=== PATIENT | female | born 1980 | race Caucasian/White ===

== ENCOUNTER 2020-09-14 11:16 | Outpatient (REF) | payer OTHER, SELFPAY | END 2020-09-14 11:17 | disposition home or self-care (01) | LOC: HO.LAB 11:16 | PROVIDERS: Visit Provider Nurse Practitioner Family | DX: N39.0 Urinary tract infection, site not specified (principal) | CPT/HCPCS: 87086; 87186 ==

== ENCOUNTER 2020-11-28 10:07 | Outpatient (REF) | payer OTHER, SELFPAY ==
[2020-11-28 11:51] LABS: Alanine Aminotransferase 79 U/L (0-31); Aspartate Amino Transferase 43 U/L (5-31); Gamma Glutamyl Transpeptidase 85 U/L (7-33)
== END 2020-11-28 10:08 | disposition home or self-care (01) ==
LOC: HO.HMGCLDS 10:07
PROVIDERS: PCP Internal Medicine; Visit Provider Nurse Practitioner
DX: F11.20 Opioid dependence, uncomplicated (principal)
CPT/HCPCS: 36415; 82977; 84450; 84460

== ENCOUNTER 2021-01-30 15:04 | Outpatient (REF) | payer OTHER, SELFPAY ==
[2021-01-31 09:09] LABS: BV Int Neg Control Negative (Negative); BV Int Pos Control Positive (Positive)
[2021-01-31 09:47] LABS: C. trachomatis RNA TMA NOT DETECTED (NOT DETECTED); N. gonorrhoeae RNA TMA NOT DETECTED (NOT DETECTED)
[2021-02-01 19:12] LABS: HPV mRNA E6/E7 rflx Not Detected (Not Detected)
== END 2021-01-30 15:05 | disposition home or self-care (01) ==
LOC: HO.LAB 15:04
PROVIDERS: Visit Provider Advanced Practice Midwife
DX: Z01.419 Encounter for gynecological examination (general) (routine) without abnormal findings (principal); R10.2 Pelvic and perineal pain; Z88.8 Allergy status to other drugs, medicaments and biological substances; Z20.2 Contact with and (suspected) exposure to infections with a predominantly sexual mode of transmission
CPT/HCPCS: 36415; 87480; 87491; 87510; 87591; 87624; 87660; 88142

== ENCOUNTER 2021-02-03 09:36 | Outpatient (REF) | payer OTHER, SELFPAY ==
[2021-02-05 08:09] LABS: Syphilis Screen Nonreactive (Nonreactive)
[2021-02-07 08:04] LABS: HIV AB/AG Nonreactive (Nonreactive); Hepatitis B Core Antibody Nonreactive (Nonreactive)
[2021-02-07 08:24] LABS: ~HepC Num1 0.16 S/CO (0.00-0.79); ~Hepatitis C Antibody Nonreactive (Nonreactive)
== END 2021-02-03 09:37 | disposition home or self-care (01) ==
LOC: HO.LAB 09:36
PROVIDERS: PCP Internal Medicine; Visit Provider Advanced Practice Midwife
DX: Z20.2 Contact with and (suspected) exposure to infections with a predominantly sexual mode of transmission (principal)
CPT/HCPCS: 36415; 86704; 86780; 86803; 87389

== ENCOUNTER 2021-02-21 15:12 | Outpatient (REF) | payer OTHER, SELFPAY ==
--- NOTE | ~2021-02-21 | US_ITS ---
EXAMINATION: US PELVIS COMPLETE CLINICAL INFORMATION: Pelvic and perineal pain. COMPARISON: Ultrasound 07/17/2020. TECHNIQUE: Transabdominal and transvaginal ultrasound of the pelvis is performed. FINDINGS: The uterus is anteverted and anteflexed measuring 10.5 cm in length, 3.9 cm in AP and 5.2 cm in transverse dimension. Endometrial thickness is 1.0 cm. There are small nabothian cysts visualized. Previously visualized myometrial cysts are not visualized on the present exam. Right ovary measures 2.7 x 2.3 x 1.4 cm and volume 4.6 mL. No cyst or lesions seen. Previously right ovary measures 2.6 x 2.7 x 2.1 cm. The left ovary measures 3.9 x 1.9 x 1.9 cm and volume 7.4 mL. There is a complex cyst measuring 2.0 x 1.6 x 1.4 cm. There is no free fluid in the cul-de-sac. US/US transvaginal IMPRESSION: Small nabothian cysts seen in the cervix. No myometrial cysts seen. Complex cyst seen in left ovary measuring 2.0 x 1.6 x 1.4 cm.
--- NOTE | ~2021-02-21 | US_ITS ---
EXAMINATION: US PELVIS COMPLETE CLINICAL INFORMATION: Pelvic and perineal pain. COMPARISON: Ultrasound 07/17/2020. TECHNIQUE: Transabdominal and transvaginal ultrasound of the pelvis is performed. FINDINGS: The uterus is anteverted and anteflexed measuring 10.5 cm in length, 3.9 cm in AP and 5.2 cm in transverse dimension. Endometrial thickness is 1.0 cm. There are small nabothian cysts visualized. Previously visualized myometrial cysts are not visualized on the present exam. Right ovary measures 2.7 x 2.3 x 1.4 cm and volume 4.6 mL. No cyst or lesions seen. Previously right ovary measures 2.6 x 2.7 x 2.1 cm. The left ovary measures 3.9 x 1.9 x 1.9 cm and volume 7.4 mL. There is a complex cyst measuring 2.0 x 1.6 x 1.4 cm. There is no free fluid in the cul-de-sac. US/US pelvic complete IMPRESSION: Small nabothian cysts seen in the cervix. No myometrial cysts seen. Complex cyst seen in left ovary measuring 2.0 x 1.6 x 1.4 cm.
== END 2021-02-21 15:13 | disposition home or self-care (01) ==
LOC: HO.US 15:12
PROVIDERS: PCP Internal Medicine; Visit Provider Advanced Practice Midwife
DX: R10.2 Pelvic and perineal pain (principal)
CPT/HCPCS: 76830; 76856

== ENCOUNTER → 2021-02-26 15:37 | Outpatient (BNVA) | payer OTHER, SELFPAY | PROVIDERS: Visit Provider Advanced Practice Midwife ==

== ENCOUNTER → 2021-04-12 08:27 | Outpatient (BNVA) | payer OTHER, SELFPAY | PROVIDERS: PCP Internal Medicine; Visit Provider Advanced Practice Midwife | DX: R10.2 Pelvic and perineal pain (principal) | CPT/HCPCS: 99212 ==

== ENCOUNTER 2021-04-16 13:50 | Outpatient (REF) | payer OTHER, SELFPAY ==
--- NOTE | ~2021-04-16 | US_ITS ---
EXAMINATION: PELVIC ULTRASOUND CLINICAL INFORMATION: Pelvic and perineal pain COMPARISON: Previous pelvic ultrasound most recent 02/21/2021 TECHNIQUE: Transabdominal and transvaginal pelvic ultrasound was performed. Transvaginal exam was performed for better visualization of the uterus and ovaries. FINDINGS: The uterus is anteverted and measures 10.1 x 4.1 x 4.9 cm in dimension. No focal uterine lesion is seen. Endometrial thickness is normal measuring 0.9 cm. There are nabothian cysts in the cervix, largest measuring 1.9 x 1.2 x 2 cm. The right ovary is normal-appearing and measures 3 x 1.4 x 2 cm. The left ovary measures 3.6 x 2 x 2.3 cm and contains a minimally complex cyst with single thin septation measuring 1.6 x 1.4 x 1.5 cm. This may represent the same cyst seen in January 2021 and be decreased in size compared to 2 x 1.6 x 1.4 cm on prior exam. There is no fluid in the pelvis. US/US pelvic and transvaginal IMPRESSION: Small minimally complex left ovarian cyst measuring 1.6 x 1.4 x 1.5 cm with single thin septation. Nabothian cysts in the cervix, largest measuring 2 cm.
== END 2021-04-16 13:51 | disposition home or self-care (01) ==
LOC: HO.HMGCX 13:50
PROVIDERS: Visit Provider Advanced Practice Midwife
DX: N83.292 Other ovarian cyst, left side (principal); N88.8 Other specified noninflammatory disorders of cervix uteri; R63.4 Abnormal weight loss; R10.2 Pelvic and perineal pain; R19.03 Right lower quadrant abdominal swelling, mass and lump
CPT/HCPCS: 76830; 76856

== ENCOUNTER 2021-04-19 10:01 | Outpatient (REF) | payer OTHER, SELFPAY ==
--- NOTE | ~2021-04-19 | US_ITS ---
EXAMINATION: US ABDOMEN COMPLETE CLINICAL INFORMATION: Elevated liver function tests. COMPARISON: Ultrasound abdomen complete dated 04/12/2020. TECHNIQUE: Real-time imaging of the abdominal viscera. FINDINGS: PANCREAS: Normal. ABDOMINAL AORTA: The proximal, mid, and distal segments are normal in caliber. INFERIOR VENA CAVA: Visualized portions are normal. LIVER: Normal. The liver is normal in size. The liver contour is normal. Parenchymal echogenicity is normal. No focal hepatic lesion. There is no intrahepatic biliary duct dilatation seen. GALLBLADDER: There are multiple small echogenic densities adjacent to the gallbladder wall that do not move or shadow suggestive of small polyps. The largest measures 2 mm. No definite stone is seen. The gallbladder wall is otherwise normal. COMMON BILE DUCT: Normal in caliber measuring 0.55 cm in diameter. RIGHT KIDNEY: Normal. No hydronephrosis. No renal calculi or focal parenchymal lesions. The kidney measures 11.9 cm in maximum dimension. LEFT KIDNEY: Normal. No hydronephrosis. No renal calculi or focal parenchymal lesions. The kidney measures 12.0 cm in maximum dimension. SPLEEN: Normal. The spleen measures 11.4 cm in maximum dimension. FREE FLUID: None. US/US abdomen complete IMPRESSION: Small gallbladder wall polyps. Otherwise unremarkable exam.
[2021-04-19 11:26] LABS: Hematocrit 36.9 % (37-47); Hemoglobin 12.2 g/dl (12.0-16.0); Mean Corpuscular HGB Conc 33.1 g/dl (31.0-35.0); Mean Corpuscular Hemoglobin 27.5 pg (27.0-33.0); Mean Corpuscular Volume 83.1 fL (80-98); Mean Platelet Volume 10.3 fL (9.4-12.3); Platelet Count 235 X10*3/uL (160-400); Red Blood Count 4.44 X10*6/uL (4.20-5.50); Red Cell Distribution Width 12.6 % (11.0-16.0); White Blood Count 5.1 X10*3/uL (4.8-10.8)
[2021-04-19 11:30] LABS: Alanine Aminotransferase 20 U/L (0-31); Albumin Level 3.9 g/dL (3.5-5.0); Alkaline Phosphatase 78 U/L (39-117); Anion Gap 10 (12-20); Aspartate Amino Transferase 16 U/L (5-31); Bilirubin Total 0.4 mg/dL (0.0-1.0); Blood Urea Nitrogen 7 mg/dL (9-16); Calcium 8.8 mg/dL (8.4-10.2); Carbon Dioxide 28 mmol/L (22-29); Chloride 106 mmol/L (96-108); Estimated Glomerular Filt Rate > 60; Glucose Fasting 91 mg/dL (60-99); Iron 64 mcg/dL (30-160); Percent Iron Saturation 22 % (15-50); Sodium 140 mmol/L (135-145); Total Iron Binding Capacity 294 mcg/dL (228-428); Total Protein 6.6 g/dL (6.5-8.0); Unsaturated Iron Binding 230 ug/dL
[2021-04-19 11:57] LABS: TSH reflex Free T4 0.46 uIU/mL (0.32-4.0)
[2021-04-20 07:07] LABS: CA-125 12 U/mL (<35)
== END 2021-04-19 10:02 | disposition home or self-care (01) ==
LOC: HO.HMGCX 10:01
PROVIDERS: Advanced Practice Midwife; Visit Provider Internal Medicine
DX: R79.89 Other specified abnormal findings of blood chemistry (principal)
CPT/HCPCS: 36415; 76700; 80053; 83540; 84443; 85027; 86304

== ENCOUNTER → 2021-04-26 11:21 | Outpatient (BNVA) | payer OTHER, SELFPAY | PROVIDERS: PCP Internal Medicine; Visit Provider Advanced Practice Midwife ==

== ENCOUNTER 2021-05-09 11:23 | Outpatient (REF) | payer OTHER, SELFPAY ==
[2021-05-10 09:48] LABS: BV Int Neg Control Negative (Negative); BV Int Pos Control Positive (Positive)
== END 2021-05-09 11:24 | disposition home or self-care (01) ==
LOC: HO.LAB 11:23
PROVIDERS: Visit Provider Nurse Practitioner Family
DX: N39.0 Urinary tract infection, site not specified (principal); R31.9 Hematuria, unspecified; R10.2 Pelvic and perineal pain
CPT/HCPCS: 87086; 87480; 87510; 87660

== ENCOUNTER 2021-09-25 15:51 | Outpatient (REF) | payer OTHER, SELFPAY ==
--- NOTE | ~2021-09-25 | US_ITS ---
EXAMINATION: US PELVIS CLINICAL INFORMATION: Cyst in the left ovary. Last menstrual period 09/24/2021. COMPARISON: Pelvic ultrasound dated from 04/16/2021. TECHNIQUE: Ultrasound of the pelvis is performed using both transabdominal and transvaginal transducers along with Doppler. Transvaginal imaging is performed due to inadequate visualization transabdominally. FINDINGS: Uterus: The uterus is anteverted and measures 9.3 x 4.2 x 5.7 cm. The endometrium measures up to 0.5 cm in thickness without focal abnormalities. The uterus is smooth in contour and has normal myometrial echogenicity. No visible fibroid. There is redemonstration of nabothian cysts, the largest measuring 1.6 x 1.2 x 2.2 cm (1.9 x 1.2 x 2.1 cm on prior study). This nabothian cyst is anechoic with smooth corona and no definite associated solid component. Adnexa: Both ovaries are visualized. There is normal color flow to the adnexa. There is no ovarian torsion. There is no pelvic ascites or fluid collection. Right ovary measures 3.1 x 1.2 x 1.8 cm. Volume of 3.5 mL. Left ovary measures 2.9. 1.1 x 1.2 cm. Volume of 2.0 mL. The previously seen minimally complex left ovarian cyst is not identified in this study. US/US pelvic and transvaginal IMPRESSION: No evidence of ovarian lesions. No evidence of ovarian torsion at the moment of this study. Multiple nabothian cysts, the largest measuring up to 2.2 cm, grossly unchanged since March.
== END 2021-09-25 15:52 | disposition home or self-care (01) ==
LOC: HO.US 15:51
PROVIDERS: PCP Internal Medicine; Visit Provider Advanced Practice Midwife
DX: N83.202 Unspecified ovarian cyst, left side (principal)
CPT/HCPCS: 76830; 76856

== ENCOUNTER → 2021-10-01 11:20 | Outpatient (BNVA) | payer OTHER, SELFPAY | PROVIDERS: PCP Internal Medicine; Visit Provider Advanced Practice Midwife ==

== ENCOUNTER 2022-06-05 09:43 | Outpatient (REF) | payer OTHER, SELFPAY ==
[2022-06-05 11:20] LABS: MANUAL DIFF FLAG NO
[2022-06-05 11:28] LABS: Basophils Percent Auto 0.6 % (0-2); Eosinophils Absolute Auto 0.1 X10*3/uL (0.0-0.4); Eosinophils Percent Auto 2.5 % (0-4); Hematocrit 39.8 % (37.0-47.0); Hemoglobin 12.7 g/dl (12.0-16.0); Imm Gran Abs Auto 0.01 X10*3/uL (0.00-0.03); Imm Gran Pct Auto 0.2 % (0.0-0.4); Lymphocytes Percent Auto 37.7 % (20-40); Mean Corpuscular HGB Conc 31.9 g/dl (31.0-35.0); Mean Corpuscular Volume 84.5 fL (80.0-98.0); Mean Platelet Volume 10.1 fL (9.4-12.3); Monocytes Absolute Auto 0.3 X10*3/uL (0.1-1.2); Monocytes Percent Auto 6.5 % (2-11); Neutrophils Absolute Auto 2.7 x10*3/uL (2.0-8.3); Neutrophils Percent Auto 52.5 % (45-73); Platelet Count 256 X10*3/uL (160-400); Red Blood Count 4.71 X10*6/uL (4.20-5.50); Red Cell Distribution Width 12.6 % (11.0-16.0); White Blood Count 5.2 X10*3/uL (4.8-10.8)
[2022-06-05 11:56] LABS: Alanine Aminotransferase 23 U/L (0-31); Albumin Level 4.2 g/dL (3.5-5.0); Alkaline Phosphatase 83 U/L (39-117); Anion Gap 10 (12-20); Aspartate Amino Transferase 20 U/L (5-31); Bilirubin Total 0.8 mg/dL (0.0-1.0); Blood Urea Nitrogen 10 mg/dL (9-16); Calcium 8.7 mg/dL (8.4-10.2); Carbon Dioxide 28 mmol/L (22-29); Chloride 104 mmol/L (96-108); Cholesterol 181 mg/dL; Estimated Glomerular Filt Rate > 60; Glucose Fasting 80 mg/dL (60-99); HDL Cholesterol 67 mg/dL; Iron 88 mcg/dL (30-160); LDL Cholesterol Calculated 102 mg/dl; Magnesium 1.9 mg/dL (1.6-2.6); Percent Iron Saturation 24 % (15-50); Sodium 138 mmol/L (135-145); Total Iron Binding Capacity 372 mcg/dL (228-428); Total Protein 7.2 g/dL (6.5-8.0); Triglycerides 62 mg/dL; Unsaturated Iron Binding 284 ug/dL
[2022-06-05 12:03] LABS: TSH reflex Free T4 1.88 uIU/mL (0.32-4.0); Vitamin D 25-OH Total 24.9 ng/mL (>30)
[2022-06-05 12:13] LABS: Vitamin B12 678 pg/mL (200-900)
[2022-06-13 10:02] LABS: Vitamin B1 9 nmol/L (8-30)
== END 2022-06-05 09:44 | disposition home or self-care (01) ==
LOC: HO.HMGCLDS 09:43
PROVIDERS: PCP Internal Medicine; Visit Provider Internal Medicine
DX: M79.641 Pain in right hand (principal); M79.642 Pain in left hand
CPT/HCPCS: 36415; 80053; 80061; 82306; 82607; 82746; 83540; 83735; 84425; 84443; 85025

== ENCOUNTER 2022-08-16 10:25 | Outpatient (REF) | payer OTHER, MEDICAID, SELFPAY ==
--- NOTE | ~2022-08-16 | XR_ITS ---
EXAMINATION: XR SHOULDER, LEFT CLINICAL INFORMATION: Pain left shoulder COMPARISON: None TECHNIQUE: AP external rotation, Grashey, scapular Y, and axillary views of the left shoulder. FINDINGS: The bones and soft tissues are normal. No fracture. Glenohumeral and acromioclavicular alignment is anatomic with normal joint space. No abnormal soft tissue calcifications. XR/XR shoulder LT min 2V IMPRESSION: Normal left shoulder.
== END 2022-08-16 10:26 | disposition home or self-care (01) ==
LOC: HO.XRAY 10:25
PROVIDERS: PCP Internal Medicine; Visit Provider Internal Medicine
DX: M25.512 Pain in left shoulder (principal)
CPT/HCPCS: 73030

== ENCOUNTER 2022-08-27 11:26 | Outpatient (REF) | payer OTHER, MEDICAID, SELFPAY | END 2022-08-27 11:27 | disposition home or self-care (01) | LOC: HO.HMGCLDS 11:26 | PROVIDERS: PCP Internal Medicine; Visit Provider Internal Medicine | DX: N39.0 Urinary tract infection, site not specified (principal) | CPT/HCPCS: 87086 ==

== ENCOUNTER 2022-11-27 14:41 | Outpatient (REF) | payer OTHER, MEDICAID, SELFPAY ==
[2022-11-30 04:49] LABS: HPV mRNA E6/E7 Not Detected (Not Detected)
== END 2022-11-27 14:42 | disposition home or self-care (01) ==
LOC: HO.LNP 14:41
PROVIDERS: Visit Provider Internal Medicine
DX: R30.0 Dysuria (principal)
CPT/HCPCS: 87624; 88142

== ENCOUNTER 2022-11-27 14:41 | Outpatient (REF) | payer OTHER, MEDICAID, SELFPAY ==
[2022-11-28 10:00] LABS: BV Int Neg Control Negative (Negative); BV Int Pos Control Positive (Positive)
== END 2022-11-27 14:42 | disposition home or self-care (01) ==
LOC: HO.LAB 14:41
PROVIDERS: Visit Provider Internal Medicine
DX: R30.0 Dysuria (principal)
CPT/HCPCS: 87086; 87480; 87510; 87660

== ENCOUNTER 2023-07-08 09:38 | Outpatient (AMB) | payer MEDICAID, SELFPAY ==
[2023-07-08 10:00] VITALS: BP 112/70; PULSE 66; O2SAT 100; BMI 23.3
--- NOTE | 2023-07-08 10:00 | A.OFFPC_ITS ---
Vital Signs 07/08/23 10:00 Height 5 ft 7 in Weight 149 lb BMI 23.3 BP 112/70 Blood Pressure Location Lt brachial Position Sitting Pulse 66 Pulse Source Pulse Oximeter Pulse Oximetry (%) 100 Oxygen Delivery Method Room Air Intake Visit Reasons: Workers Comp-Shoulder Injury at Work Intake Note: Pt is here today for a follow up visit. Pt states that she needs a work note that she can work with no restrictions. Allergies tiagabine [Gabitril] Allergy (Unknown, Verified 07/08/23 10:02) blindness Tobacco use date assessed: 07/08/23 HPI Workers Comp-Shoulder Injury at Work HPI Details Pt presents for f/u visit for L shoulder injury at work on 06/09. Patient has been doing home exercises for left shoulder pain and is feeling shoulder is back to normal function. Patient would like to return back to regular duty work today. [facility] Medical History Annual physical exam Bilateral hand pain Elevated LFTs Enlarged thyroid History of anxiety Hx of abnormal cervical Pap smear Substance abuse Weight loss Surgical History History of cryosurgery Family History Paternal Grandmother History of breast cancer Other Mental health disorder Substance use disorder Social History Housing: Apartment Alcohol intake: former Patient Tobacco Use Status: Never used Tobacco Current occupational status: employed Gender identity: Female Cognitive needs: No Hearing needs: No Vision needs: No Female Reproductive History Menstrual Age of Menarche: 12 Questionnaire Thrive Questionnaire Date Thrive assessed: 11/27/22 ALIX-7 AMB Questionnaire ALIX-7 Date ALIX - 7 assessed: 11/27/22 Source: Developed by Drs. Kai Lemos, Reba Olson, Jaden Arreola and colleagues, with an educational vitaliy from [employer]. Review of Systems Const All systems reviewed & are unremarkable except as noted in HPI and below Reports no additional complaints Eyes Reports no additional complaints ENT Reports no additional complaints Card Reports no additional complaints Resp Reports no additional complaints GI Reports no additional complaints Reports no additional complaints Physical exam (Primary Care) Vital Signs: Last Vital Signs Pulse 66 07/08/23 10:00 BP 112/70 07/08/23 10:00 Pulse Ox 100 07/08/23 10:00 Oxygen Delivery Method Room Air 07/08/23 10:00 BMI result Body Mass Index 23.3 Tobacco/Smoking Status: Tobacco use Status Tobacco use date assessed 07/08/23 07/08/23 10:07 Patient Tobacco Use Status Never used Tobacco 07/08/23 10:07 Thrive Assessment: Date of Thrive Assessment Date Thrive assessed 11/27/22 07/08/23 10:05 Const General: no acute distress Neck Neck: Yes no lymphadenopathy and Yes supple Resp Effort & Inspection: normal respiratory effort Auscultation: clear to auscultation bilaterally Cardio Rhythm: regular rhythm Heart sounds: S1 normal heart sound present and S2 normal heart sound present Extrem Other: Left shoulder with full range of motion, active and passive Assessment and Plan Assessment & Plan (1) Shoulder pain, left: Code(s): M25.512 - Pain in left shoulder Plan: Return to regular duty work note given to patient Coding Level of Care Code Est Pt Level 3 (51116) Diagnoses Shoulder pain, left M25.512
== END 2023-07-08 11:09 | disposition home or self-care (01) ==
PROVIDERS: PCP Internal Medicine; Visit Provider Internal Medicine
DX: M25.512 Pain in left shoulder (principal)
CPT/HCPCS: 99213

== ENCOUNTER 2023-10-21 10:06 | Outpatient (AMB) | payer OTHER, MEDICAID, SELFPAY ==
[2023-10-21 10:10] VITALS: BP 102/62; PULSE 81; O2SAT 100; BMI 24.9
--- NOTE | 2023-10-21 10:10 | A.OFFPC_ITS ---
Vital Signs 10/21/23 10:10 Height 5 ft 7 in Weight 159 lb BMI 24.9 BP 102/62 Blood Pressure Location Lt brachial Position Sitting Pulse 81 Pulse Source Pulse Oximeter Pulse Oximetry (%) 100 Oxygen Delivery Method Room Air Intake Visit Reasons: Urinary tract infection Intake Note: Pt is here today for a sick visit. Pt c/o pain and burning when urinating and frequent urination since yesterday. Allergies tiagabine [Gabitril] Allergy (Unknown, Verified 10/21/23 10:13) blindness Medication List - Last Reconciled 10/21/23 by Lacie Santos MD buprenorphine-naloxone 8-2 mg 1.5 tabs sublingual DAILY cetirizine 10 mg PO DAILY cholecalciferol (vitamin D3) 25 mcg PO DAILY citalopram 20 mg PO DAILY hydroxyzine HCl 10 mg PO BEDTIME ondansetron 4 mg PO Q8H PRN sulfamethoxazole-trimethoprim 800-160 mg (Bactrim DS) 1 tab PO BID Tobacco use date assessed: 07/08/23 HPI Urinary tract infection HPI Details Pt c/o increased urination frequency and burning sensation while urinating for 1 day. She denies abdominal pain fever chills hematuria nausea vomiting. Patient has been drinking more coffee than usual but has been drinking more fluids. [facility] Medical History Annual physical exam Bilateral hand pain Elevated LFTs Enlarged thyroid History of anxiety Hx of abnormal cervical Pap smear Substance abuse Weight loss Surgical History History of cryosurgery Family History Paternal Grandmother History of breast cancer Other Mental health disorder Substance use disorder Housing: Apartment Alcohol intake: former Patient Tobacco Use Status: Never used Tobacco Current occupational status: employed Gender identity: Female Cognitive needs: No Hearing needs: No Vision needs: No Female Reproductive History Menstrual Age of Menarche: 12 Questionnaire Thrive Questionnaire Date Thrive assessed: 11/27/22 ALIX-7 AMB Questionnaire ALIX-7 Date ALIX - 7 assessed: 11/27/22 Source: Developed by Drs. Kai Lemos, Reba Olson, Jaden Arreola and colleagues, with an educational vitaliy from [employer]. Review of Systems Const All systems reviewed & are unremarkable except as noted in HPI and below Eyes Reports no additional complaints ENT Reports no additional complaints Card Reports no additional complaints Resp Reports no additional complaints GI Reports no additional complaints Reports no additional complaints Physical exam (Primary Care) Vital Signs: Last Vital Signs Pulse 81 10/21/23 10:10 BP 102/62 10/21/23 10:10 Pulse Ox 100 10/21/23 10:10 Oxygen Delivery Method Room Air 10/21/23 10:10 BMI result Body Mass Index 24.9 Tobacco/Smoking Status: Tobacco use Status Tobacco use date assessed 07/08/23 10/21/23 10:10 Patient Tobacco Use Status Never used Tobacco 10/21/23 10:10 Thrive Assessment: Date of Thrive Assessment Date Thrive assessed 11/27/22 10/21/23 10:10 Const General: no acute distress HENMT Head: Yes normal to inspection Resp Effort & Inspection: normal respiratory effort Auscultation: clear to auscultation bilaterally Cardio Rhythm: regular rhythm Heart sounds: S1 normal heart sound present and S2 normal heart sound present GI Inspection: Yes normal to inspection Palpation (GI): Soft to palpation Percussion: Yes normal to percussion Auscultation: normal bowel sounds General: Yes Bimanual renal exam normal bilaterally Results AMB Urinalysis, Automated UA Leukoctes 0 Valerio/uL Last Edit by CHANTELL Nunez on 10/21/23 10:23 UA Nitrite Negative Last Edit by Sydney Herrera Zia on 10/21/23 10:23 UA Urobilinogen 0.2 mg/dL Last Edit by Sydney Herrera [facility] on 10/21/23 10: 23 UA Protein 15 mg/dL Last Edit by Sydney Herrera Zia on 10/21/23 10:23 UA pH 6.0 Last Edit by Sydney Herrera [facility] on 10/21/23 10:23 UA Blood 0 Gualberto/uL Last Edit by Sydney Herrera Zia on 10/21/23 10:23 UA Specific [place] 1.030 Last Edit by CHANTELL Nunez on 10/21/23 10 :23 UA Ketone Negative Last Edit by CHANTELL Nunez on 10/21/23 10:23 UA Bilirubin 0 mg/dL Last Edit by CHANTELL Nunez on 10/21/23 10:23 UA Glucose 0 mg/dL Last Edit by CHANTELL Nunez on 10/21/23 10:23 Results Reviewed Results Reviewed: Laboratory Last Values Urine pH (Auto) 6.0 10/21/23 10:22 Specific [place] (Auto) 1.030 10/21/23 10:22 Urine Protein (Auto) 15 mg/dL 10/21/23 10:22 Glucose (UA)(Auto) 0 mg/dL 10/21/23 10:22 Urine Ketones (Auto) Negative 10/21/23 10:22 Urine Blood (Auto) 0 Gualberto/uL 10/21/23 10:22 Urine Nitrite (Auto) Negative 10/21/23 10:22 Urine Bilirubin (Auto) 0 mg/dL 10/21/23 10:22 Urine Urobilinogen (Auto) 0.2 mg/dL 10/21/23 10:22 Leukocyte Esterase (Auto) 0 Valerio/uL 10/21/23 10:22 Assessment and Plan Assessment & Plan (1) UTI (urinary tract infection): Code(s): N39.0 - Urinary tract infection, site not specified Plan: Urinalysis is positive for trace of protein. Urine culture will be checked. Bactrim for 5 days is prescribed but if culture is negative patient was advised to discontinue. Preventive measures discussed with the patient Orders: Orders Urine Culture Today N39.0 - Urinary tract infection, site not specified AMB Urinalysis Automated Today Z13.9 - Encounter for screening, unspecified UA CC w/rflx Micro + Cult Today N39.0 - Urinary tract infection, site not specified Medications: New sulfamethoxazole-trimethoprim 800-160 mg (Bactrim DS) 1 tab PO BID 10 tabs 0RF Coding Level of Care Code Est Pt Level 3 (59213) Diagnoses UTI (urinary tract infection) N39.0
== END 2023-10-21 10:50 | disposition home or self-care (01) ==
PROVIDERS: PCP Internal Medicine; Visit Provider Internal Medicine
DX: N39.0 Urinary tract infection, site not specified (principal); R35.0 Frequency of micturition
CPT/HCPCS: 81003; 99213

== ENCOUNTER 2023-10-21 10:27 | Outpatient (REF) | payer MEDICAID, SELFPAY ==
[2023-10-21 13:44] LABS: Appearance Urine Clear; Color Urine Yellow; Glucose Urine UA Negative (Negative); Leukocyte Esterase Urine Negative (Negative); Nitrite Urine Negative (Negative); Specific Gravity - Urine >= 1.030 (1.005-1.025); Urine Blood Negative (Negative); Urine Ketones Trace mg/dL (Negative); Urine Protein Negative (Neg-Trace)
== END 2023-10-21 10:28 | disposition home or self-care (01) ==
LOC: HO.LAB 10:27
PROVIDERS: Visit Provider Internal Medicine
DX: N39.0 Urinary tract infection, site not specified (principal)
CPT/HCPCS: 81003; 87086

== ENCOUNTER 2023-11-20 08:40 | Outpatient (AMB) | payer OTHER, MEDICAID, SELFPAY ==
[2023-11-20 08:52] VITALS: BP 130/68; PULSE 89; TEMP 36.9; O2SAT 99; BMI 24.6
--- NOTE | 2023-11-20 08:52 | MHC.OFFWIV ---
Intake Vital Signs 11/20/23 08:52 Height 5 ft 7 in Weight 157 lb BMI 24.6 BP 130/68 Blood Pressure Location Lt brachial Position Sitting Pulse 89 Pulse Source Pulse Oximeter Temp 98.4 F Temp Source Temporal Artery Scan Pulse Oximetry (%) 99 Oxygen Delivery Method Room Air Intake Visit Reasons: EP RT shoulder injury WC [phone] Intake Note: pt is here today for shoulder injury started yesterday Patient Tobacco Use Status: Never used Tobacco Allergies tiagabine [Gabitril] Allergy (Unknown, Verified 11/20/23 09:08) blindness Do you need a note to return to daycare/school/sports/work: Yes HPI HPI Comments History of Present Illness Details present She works for [employer] She said at work yesterday around 9:15am She was lifting/moving boxes and was in the middle of pulling a rack and felt sharp pain R shoulder R hand dominant Pain was very severe per patient; pain lasted 2-3 minutes She went back to work but pain occurred again with next movement Work aware and sent to safety and she was sent to [facility]. Had xray which was negative per [facility] They sent her to PT yesterday and was given her an appointment for PT tomorrow [facility] Medical History Annual physical exam Bilateral hand pain Elevated LFTs Enlarged thyroid History of anxiety Hx of abnormal cervical Pap smear Substance abuse Weight loss Surgical History History of cryosurgery Family History Paternal Grandmother History of breast cancer Other Mental health disorder Substance use disorder Social History Housing: Apartment Alcohol intake: former Patient Tobacco Use Status: Never used Tobacco Current occupational status: employed Gender identity: Female Cognitive needs: No Hearing needs: No Vision needs: No Female Reproductive History Menstrual Age of Menarche: 12 Review of Systems Const Reports body aches (R shoulder), Denies chills and Denies fever(s) Card Denies chest pain, Denies rapid heart rate and Denies dyspnea Resp Denies cough and Denies dyspnea Musc Denies abnormal gait and Reports arthralgias (R shoulder) Skin/Breast Denies change in pigmentation, Denies new lesions and Denies rash Neuro Denies abnormal gait Physical Exam Vital Signs: Last Vital Signs Temp 98.4 F 11/20/23 08:52 Pulse 89 11/20/23 08:52 BP 130/68 11/20/23 08:52 Pulse Ox 99 11/20/23 08:52 Oxygen Delivery Method Room Air 11/20/23 08:52 BMI result Body Mass Index 24.6 General: Non-toxic, NAD. Speaking full sentences. Skin: Warm dry throughout. No shoulder erythema/step off. No ecchymosis Eye: EOMI Neck: No c-spine or T-spine tenderness Respiratory: CTA bilaterally. No wheezes, rales or rhonchi Cardiac: RRR. No murmur. Radial pulse 2+ MSK: No tenderness to palpation L shoulder or clavical. No R clavical tenderness. No TTP R bicipital groove or AC joint. + R lateral humerus tenderness to palpation. Limited ROM and unabke to perform brendan lift off. 5/5 sports physiotherapist strength Neurology: A/O. Gait without abnormality Psych: Good mood and affect Assessment & Plan Assessment & Plan (1) Shoulder pain, right: Code(s): M25.511 - Pain in right shoulder Qualifiers: Chronicity: acute Qualified Code(s): M25.511 - Pain in right shoulder Plan: Patient seen and evaluated. WC injury She had negative xray yesterday per documentation Will provide orthopedic referral for patient to follow up with Also encouraged PT to continue Ibuprofen 800mg; no alcohol or other NSAIDs No RUE use at work until cleared by ortho/PT Ice x 48 hours and then switch to heat Patient gave verbal understanding and had no additional questions or concerns at time of discharge All questions answered Orders: Referrals Orthopedics Referral M25.511 - Pain in right shoulder Medications: New ibuprofen 800 mg PO Q8H PRN 14 tabs 0RF pain M25.511 - Pain in right shoulder Coding Level of Care Code Est Pt Level 3 (16574) Diagnoses Acute pain of right shoulder M25.511 Chronicity: acute
== END 2023-11-20 09:52 | disposition home or self-care (01) ==
PROVIDERS: PCP Internal Medicine; Visit Provider Physician Assistant
DX: M25.511 Pain in right shoulder (principal)
CPT/HCPCS: 99213

== ENCOUNTER 2023-11-25 08:14 | Outpatient (AMB) | payer OTHER, MEDICAID, SELFPAY ==
[2023-11-25 08:57] VITALS: BP 120/70; PULSE 65; TEMP 36.6; O2SAT 99; BMI 25.5
--- NOTE | 2023-11-25 08:57 | AM.OFFWIN_ITS ---
Intake Vital Signs 11/25/23 08:57 Height 5 ft 7 in Weight 163 lb 2 oz BMI 25.5 BP 120/70 Blood Pressure Location Rt brachial Position Sitting Pulse 65 Pulse Source Pulse Oximeter Temp 97.9 F Temp Source Temporal Artery Scan Pulse Oximetry (%) 99 Oxygen Delivery Method Room Air Intake Visit Reasons: EP, WC, right shoulder pain ([phone]) Intake Note: pt is here for c.o right shoulder pain due to injury at work and need clearance to go back to work requesting work note Patient Tobacco Use Status: Never used Tobacco Allergies tiagabine [Gabitril] Allergy (Unknown, Verified 11/25/23 09:32) blindness Medication List - Last Reconciled 11/25/23 by Hayden Hernandez MD buprenorphine-naloxone 8-2 mg 17 mg sublingual DAILY cetirizine 10 mg PO DAILY cholecalciferol (vitamin D3) 25 mcg PO DAILY hydroxyzine HCl 10 mg PO BEDTIME ibuprofen 800 mg PO Q8H PRN ondansetron 4 mg PO Q8H PRN Do you need a note to return to daycare/school/sports/work: Yes HPI EP, WC, right shoulder pain ([phone]) HPI Details 43-year-old female presents to the [facility] for a sick visit. Patient was unable to go to work because of right shoulder pain. A symptoms have resolved and she would like to return to work with no restrictions. [facility] Medical History Annual physical exam Bilateral hand pain Elevated LFTs Enlarged thyroid History of anxiety Hx of abnormal cervical Pap smear Substance abuse Weight loss Surgical History History of cryosurgery Family History Paternal Grandmother History of breast cancer Other Mental health disorder Substance use disorder Social History Housing: Apartment Alcohol intake: former Patient Tobacco Use Status: Never used Tobacco Current occupational status: employed Gender identity: Female Cognitive needs: No Hearing needs: No Vision needs: No Female Reproductive History Menstrual Age of Menarche: 12 Physical Exam Vital Signs: Last Vital Signs Temp 97.9 F 11/25/23 08:57 Pulse 65 11/25/23 08:57 BP 120/70 11/25/23 08:57 Pulse Ox 99 11/25/23 08:57 Oxygen Delivery Method Room Air 11/25/23 08:57 BMI result Body Mass Index 25.5 Extrem Other: Right shoulder: No acromial joint tenderness. Full range of flexion extension internal and external rotation. Assessment & Plan Assessment & Plan (1) Shoulder pain, right: Code(s): M25.511 - Pain in right shoulder Qualifiers: Chronicity: acute Qualified Code(s): M25.511 - Pain in right shoulder Plan: Symptoms have completely resolved. Patient can return to work with no restrictions. Note for work given. Coding Level of Care Code Est Pt Level 3 (91399) Diagnoses Acute pain of right shoulder M25.511 Chronicity: acute
== END 2023-11-25 09:35 | disposition home or self-care (01) ==
PROVIDERS: PCP Internal Medicine; Visit Provider Internal Medicine
DX: M25.511 Pain in right shoulder (principal)
CPT/HCPCS: 99213

== ENCOUNTER 2023-12-05 09:46 | Outpatient (AMB) | payer OTHER, MEDICAID, SELFPAY ==
--- NOTE | 2023-12-05 09:48 | A.OFFVIS_ITS ---
Intake Vital Signs 12/05/23 09:54 Height 5 ft 7 in Weight 157 lb BMI 24.6 BP 108/62 Intake Visit Reasons: Annual Intake Note: Uti symptoms Machine Builder Required: No Information Interpreted: non-clinical & clinical Cement Despatch Operator: Cement Despatch Operator Present (Laura ABDUL) Accompanied by: Self / Same As Patient Allergies tiagabine [Gabitril] Allergy (Unknown, Verified 12/05/23 09:56) blindness Is last menstrual period known: Yes HPI HPI Comments History of Present Illness Details She is a premenopausal woman presenting for annual examination. Doing well with concerns: did not finish meds for a uti and wants to recheck urine today. She tries to eat healthy and stays active with exercise. Regular monthly menses. Currently is sexually active. She denies vaginal itching and irritation. STI screening offered; she declines. Denies family history of breast, ovarian or colon cancer. Mammogram: not UTD, admits didn't remember to complete. Last pap smear 11/2022, negative. [facility] Medical History Bilateral hand pain Substance abuse Annual physical exam Weight loss Elevated LFTs Enlarged thyroid History of anxiety Hx of abnormal cervical Pap smear Surgical History History of cryosurgery Family History (Updated 12/05/23 @ 10:08 by Florence Diop CNM) Paternal Grandmother Ovarian cancer Other Mental health disorder Substance use disorder Social History (Updated 12/05/23 @ 09:58 by Laura Chaudhry CMA) Household Members: Spouse Household Members Other:: daughter Housing: Apartment Alcohol intake: former Patient Tobacco Use Status: Never used Tobacco Current occupational status: employed Current occupation: [employer] Sexual orientation: Straight/Heterosexual Gender identity: Female Cognitive needs: No Hearing needs: No Vision needs: No Female Reproductive History Menstrual Age of Menarche: 12 Total pregnancies: 4 Full term: 2 Number of Living Children: 2 Ab spontaneous: 2 Date of Mammogram: 11/27/22 Review of Systems Const All systems reviewed & are unremarkable except as noted in HPI and below Reports as per HPI Eyes Reports no additional complaints ENT Reports no additional complaints Card Reports no additional complaints Resp Reports no additional complaints GI Reports as per HPI and Reports no additional complaints Reports as per HPI Musc Reports no additional complaints Skin/Breast Reports as per HPI Neuro Reports no additional complaints Psych Reports no additional complaints Endo Reports no additional complaints Leo/Lymph Reports no additional complaints Aller/Immun Reports no additional complaints Physical Exam Vital Signs: Last Vital Signs BP 108/62 12/05/23 09:54 BMI result Body Mass Index 24.6 Const General: cooperative, healthy appearing, no acute distress, well developed and alert Orientation/consciousness: patient oriented x3 HEENT Head: Yes normal to inspection Eyes General: appearance normal, both eyes and all related structures Neck Neck: Yes normal visual inspection Thyroid: Thyroid normal Chest Other: Fullness of her right breast at 11 to 12 o'clock position slightly tender to the area per patient w/palpation Chest palpation & inspection: normal inspection of the chest and other (no puckering, dimpling, peau de orange, retraction, discharge, masses) Breast/axilla inspection: normal inspection of the breasts Breast/axilla palpation: normal palpation of the breasts Resp Effort & Inspection: normal respiratory effort GI Inspection: Yes normal to inspection Palpation (GI): Soft to palpation Rectal Exam - Female: deferred General: Yes bladder normal to palpation External Female Exam: normal external appearance and normal appearance of the urethra Speculum Exam - Vagina: normal appearance of the vagina, normal palpation and normal vaginal discharge Speculum Exam - Cervix: normal appearance of the cervix and normal palpation Bimanual exam- vagina & uterus: normal bimanual exam, normal palpation, uterine size normal, bladder normal to palpation, normal palpation and non-tender Bimanual Exam- Adnexa, other: no masses Skin General skin exam: no rashes or lesions noted Rashes: no rashes Neuro General: patient oriented x3 Cognition (Neuro): normal cognition Extrem General: Yes normal to inspection Psych Attitude: cooperative Thought process: Normal thought process present Results AMB Urinalysis Dipstick UR Leukocytes Negative Last Edit by Laura Chaudhry CMA on 12/05/23 10:13 UR Nitrite Negative Last Edit by Laura Chaudhry CMA on 12/05/23 10:13 UR Urobilinogen Normal Last Edit by Laura Chaudhry CMA on 12/05/23 10:13 UR Protein Negative Last Edit by Laura Chaudhry CMA on 12/05/23 10:13 UR Ph 6.0 Last Edit by Laura Chaudhry CMA on 12/05/23 10:13 UR Blood Negative Last Edit by Laura Chaudhry CMA on 12/05/23 10:13 UR Specific [place] 1.025 Last Edit by Laura Chaudhry CMA on 12/05/23 10:13 UR Ketone Negative Last Edit by Laura Chaudhry CMA on 12/05/23 10:13 UR Bilirubin Negative Last Edit by Laura Chaudhry CMA on 12/05/23 10:13 UR Glucose Negative Last Edit by Laura Chaudhry CMA on 12/05/23 10:13 Assessment & Plan Assessment & Plan (1) Encounter for well woman exam with routine gynecological exam: Code(s): Z01.419 - Encounter for gynecological examination (general) (routine) without abnormal findings (2) Breast lump on right side at 11 o'clock position: Code(s): N63.11 - Unspecified lump in the right breast, upper outer quadrant Plan Discussed: Current recommendations for pap smears per ASCCP guidelines. Breast awareness and periodic breast exams. Maintain a healthy lifestyle including a well balanced diet and routine exercise. Advised to urinate after intimacy, urine dip-neg. follow up if any further concerns. Mammogram yearly. Breast ultrasound and diagnostic mammogram ordered patient advised to follow up pending results if there is any concern she will be referred to the appropriate physician to follow-up. All of her questions and concerns were addressed to the best of my ability. RTO in one year for annual police detention attendant examination. This note is constructed using voice recognition software. While every effort has been made to ensure accuracy, ward maid errors may have been included. Orders: Orders AMB Urinalysis Dipstick Today R30.0 - Dysuria US breast RT complete Today N63.11 - Unspecified lump in the right breast, upper outer quadrant MM tomosynthesis diagnostic BI Today N63.11 - Unspecified lump in the right breast, upper outer quadrant, Z12.31 - Encounter for screening mammogram for malignant neoplasm of breast Coding Level of Care Code Est Pt Prev Care 40-64y(33123) Diagnoses Encounter for well woman exam with routine gynecological exam Z01.419 Breast lump on right side at 11 o'clock position N63.11
[2023-12-05 09:54] VITALS: BP 108/62; BMI 24.6
== END 2023-12-05 10:18 | disposition home or self-care (01) ==
PROVIDERS: PCP Internal Medicine; Visit Provider Advanced Practice Midwife
DX: Z01.419 Encounter for gynecological examination (general) (routine) without abnormal findings (principal); N63.11 Unspecified lump in the right breast, upper outer quadrant; R30.0 Dysuria
CPT/HCPCS: 99396

== ENCOUNTER → 2023-12-05 09:46 | Outpatient (BNVA) | payer OTHER, MEDICAID, SELFPAY | PROVIDERS: PCP Internal Medicine; Visit Provider Advanced Practice Midwife | DX: Z01.419 Encounter for gynecological examination (general) (routine) without abnormal findings (principal); N63.11 Unspecified lump in the right breast, upper outer quadrant | CPT/HCPCS: 81002 ==

== ENCOUNTER 2023-12-09 10:43 | Outpatient (REF) | payer OTHER, MEDICAID, SELFPAY ==
--- NOTE | ~2023-12-09 | MM_ITS ---
EXAMINATION: MM DIAGNOSTIC DIGITAL BREAST TOMOSYNTHESIS, BILATERAL US BREAST LIMITED, RIGHT MAMMOGRAPHY: CLINICAL INFORMATION: 43-year-old female, baseline examination, complaining of nipple size palpable focus upper outer right breast at the 11-12 o'clock axis. COMPARISON: Mammography: None. Baseline exam. TECHNIQUE: Digital breast tomosynthesis is performed in both the craniocaudal and mediolateral oblique views along with computer-aided detection (CAD). Synthesized 2D images are generated from the tomosynthesis. In addition, 3-D spot compression small paddle CC and MLO views of the right breast were also included. FINDINGS: The breasts are heterogeneously dense, which may obscure small masses (ACR BI-RADS breast composition Category c). There are no suspicious masses, suspicious grouped calcifications, or areas of architectural distortion in either breast. Spot compression views demonstrate asymmetric normal-appearing breast tissue present in the right breast in the tail of [place]. The palpable focus has been marked by the technologist with a BB marker. There is no correlating mammographic abnormality adjacent to or deep to this region. Patient may be feeling this accessory breast tissue. ULTRASOUND: CLINICAL INFORMATION: 43-year-old female, baseline examination, complaining of nipple size palpable focus upper outer right breast at the 11-12 o'clock axis. COMPARISON: None TECHNIQUE: Targeted sonographic evaluation was performed using a high frequency linear transducer. Attention was given to the region of palpable concern as directed by the patient's knee 11-12 o'clock axis right breast. Selected archived documentation. FINDINGS: RIGHT BREAST: There is a mixture of fatty and fibroglandular tissue. No suspicious mass is seen. There is no pathologic acoustic shadowing. No cystic abnormality. There is no ultrasonographic correlate to the region of palpable concern right breast. MM/MM tomosynthesis diagnostic BI IMPRESSION: There are no findings suspicious for malignancy in either breast. Palpable focus right breast shows no ultrasonographic or mammographic correlate. The patient may be feeling accessory breast tissue in the tail of Bonner. Recommend clinical management. Decision to biopsy a palpable abnormality without imaging correlate must be determined on a clinical basis. OVERALL ASSESSMENT: Mammography: BI-RADS 1 - Negative Ultrasound: BI-RADS 1 - Negative RECOMMENDATION: 1. Patient should be managed based on the clinical impression. 2. Otherwise, routine annual screening mammography. This patient's information was entered into a reminder system with a target due date for their next mammogram.
== END 2023-12-09 10:44 | disposition home or self-care (01) ==
LOC: HO.MAMMO 10:43
PROVIDERS: PCP Internal Medicine; Visit Provider Advanced Practice Midwife
DX: N63.11 Unspecified lump in the right breast, upper outer quadrant (principal)
CPT/HCPCS: 76641; 77062; 77066

== ENCOUNTER → 2023-12-09 11:30 | Outpatient (BNV) | payer OTHER, MEDICAID, SELFPAY | PROVIDERS: PCP Internal Medicine; Visit Provider Radiology Diagnostic Radiology | DX: N63.11 Unspecified lump in the right breast, upper outer quadrant (principal) | CPT/HCPCS: 76642; 77062; 77066 ==

== ENCOUNTER 2023-12-23 12:03 | Outpatient (REF) | payer OTHER, MEDICAID, SELFPAY | END 2023-12-23 12:04 | disposition home or self-care (01) | LOC: HO.HOSX 12:03 | PROVIDERS: Visit Provider Physician Assistant | DX: Z13.89 Encounter for screening for other disorder (principal) ==

== ENCOUNTER 2024-04-06 10:19 | Outpatient (AMB) | payer OTHER, MEDICAID, SELFPAY ==
[2024-04-06 10:25] VITALS: BP 140/70; PULSE 74; TEMP 36.3; O2SAT 98; BMI 24.3
--- NOTE | 2024-04-06 10:25 | MHC.OFFWIV ---
Intake Vital Signs 04/06/24 10:25 Height 5 ft 7 in Weight 155 lb BMI 24.3 BP 140/70 H Blood Pressure Location Lt brachial Position Sitting Pulse 74 Pulse Source Pulse Oximeter Temp 97.3 F Temp Source Temporal Artery Scan Pulse Oximetry (%) 98 Oxygen Delivery Method Room Air Intake Visit Reasons: EPright foot maybe broken toes Intake Note: pt is here today for rt foot maybe broken started yesterday Patient Tobacco Use Status: Never used Tobacco Allergies tiagabine [Gabitril] Allergy (Unknown, Verified 04/06/24 10:38) blindness Medication List - Last Reconciled 04/06/24 by Hayden Hernandez MD buprenorphine-naloxone 8-2 mg 17 mg sublingual DAILY cetirizine 10 mg PO DAILY ibuprofen 800 mg PO Q8H PRN ondansetron 4 mg PO Q8H PRN Do you need a note to return to daycare/school/sports/work: No HPI EPright foot maybe broken toes HPI Details Patient works at [email or web address] in the [employer]. A month ago, she hit the corner of the right foot against a shelf. The fifth toe was bruised, did not seek medical attention. Last week a wooden board fell on the middle of the rigth foot. After a few hours of standing and working, she begins to experience discomfirt. REPLACED BY [facility] Medical History Bilateral hand pain Substance abuse Annual physical exam Weight loss Elevated LFTs Enlarged thyroid History of anxiety Hx of abnormal cervical Pap smear Surgical History History of cryosurgery Family History (Updated 12/05/23 @ 10:08 by Florence Diop CNM) Paternal Grandmother Ovarian cancer Other Mental health disorder Substance use disorder Social History (Updated 12/05/23 @ 09:58 by Laura Chaudhry CMA) Household Members: Spouse Household Members Other:: daughter Housing: Apartment Alcohol intake: former Patient Tobacco Use Status: Never used Tobacco Current occupational status: employed Current occupation: [email or web address] Sexual orientation: Straight/Heterosexual Gender identity: Female Cognitive needs: No Hearing needs: No Vision needs: No Female Reproductive History Menstrual Age of Menarche: 12 Physical Exam Vital Signs: Last Vital Signs Temp 97.3 F 04/06/24 10:25 Pulse 74 04/06/24 10:25 BP 140/70 H 04/06/24 10:25 Pulse Ox 98 04/06/24 10:25 Oxygen Delivery Method Room Air 04/06/24 10:25 BMI result Body Mass Index 24.3 Extrem Other: Right foot: No visible bruising. Tenderness on palpation over the dorsum of the foot. Assessment & Plan Assessment & Plan (1) Contusion of foot, right: Code(s): S90.31XA - Contusion of right foot, initial encounter Plan: X ray images were personally revd by me. No fracture seen. Rest and elevation suggested. Orders: Orders XR foot RT min 3V Today S90.31XA - Contusion of right foot, initial encounter Coding Level of Care Code Est Pt Level 4 (85660) Diagnoses Contusion of foot, right S90.31XA
== END 2024-04-06 11:08 | disposition home or self-care (01) ==
PROVIDERS: PCP Internal Medicine; Visit Provider Internal Medicine
DX: S90.31XA Contusion of right foot, initial encounter (principal)
CPT/HCPCS: 99214

== ENCOUNTER 2024-04-06 10:35 | Outpatient (REF) | payer OTHER, MEDICAID, SELFPAY ==
--- NOTE | ~2024-04-06 | XR_ITS ---
EXAMINATION: XR FOOT, RIGHT CLINICAL INFORMATION: Right foot contusion COMPARISON: Right foot 07/04/2020 TECHNIQUE: AP, lateral, and oblique views of the right foot. FINDINGS: There is mild hallux valgus. Some minimal degenerative change seen at the first MTP joint. There is been complete healing of the previously seen acute fracture at the base of the proximal phalanx of the fifth digit. No evidence of an acute injury at this time. XR/XR foot RT min 3V IMPRESSION: No acute finding. Mild hallux valgus and degenerative changes first MTP joint.
== END 2024-04-06 10:36 | disposition home or self-care (01) ==
LOC: HO.HMGCX 10:35
PROVIDERS: PCP Internal Medicine; Visit Provider Internal Medicine
DX: M20.11 Hallux valgus (acquired), right foot (principal); M24.174 Other articular cartilage disorders, right foot
CPT/HCPCS: 73630

== ENCOUNTER 2024-05-11 08:03 | Outpatient (AMB) | payer OTHER, SELFPAY ==
--- NOTE | 2024-05-11 08:04 | AM.OFFWIN_ITS ---
Intake Vital Signs 05/11/24 08:05 Height 5 ft 7 in Weight 153 lb BMI 24.0 BP 162/88 H Blood Pressure Location Lt brachial Position Sitting Pulse 77 Pulse Source Pulse Oximeter Temp 98.2 F Temp Source Oral Pulse Oximetry (%) 100 Oxygen Delivery Method Room Air Intake Visit Reasons: EP ?UTI Intake Note: pt here for ? UTI, pt states its the most painful uti she ever had. Symptoms been ongoing for 3 day, painful urination and also frequently. Patient Tobacco Use Status: Never used Tobacco Allergies tiagabine [Gabitril] Allergy (Unknown, Verified 05/11/24 08:11) blindness Do you need a note to return to daycare/school/sports/work: No HPI HPI Comments History of Present Illness Details 44-year-old female complaining of 3 days of increase in frequency, incomplete emptying and burning with urination. She denies any fevers, blood in her urine or abnormal discharge. She states she was taking azo with probiotics and that seemed to keep her UTIs at [place] but now they seem to be coming back because she keeps forgetting to take it. She states that a lot of antibiotics do not work for her but the 1 we gave her last time worked well. She states there is no chance for an STI as she is in a monogamous relationship with her . And she states this really feels like all of the UTIs she has had in the past. [facility] Medical History Bilateral hand pain Substance abuse Annual physical exam Weight loss Elevated LFTs Enlarged thyroid History of anxiety Hx of abnormal cervical Pap smear Surgical History History of cryosurgery Family History (Updated 12/05/23 @ 10:08 by Florence Diop CNM) Paternal Grandmother Ovarian cancer Other Mental health disorder Substance use disorder Social History (Updated 12/05/23 @ 09:58 by Laura Chaudhry CMA) Household Members: Spouse Household Members Other:: daughter Housing: Apartment Alcohol intake: former Patient Tobacco Use Status: Never used Tobacco Current occupational status: employed Current occupation: [employer] Sexual orientation: Straight/Heterosexual Gender identity: Female Cognitive needs: No Hearing needs: No Vision needs: No Female Reproductive History Menstrual Age of Menarche: 12 Review of Systems Const All systems reviewed & are unremarkable except as noted in HPI and below Physical Exam Vital Signs: BMI result Body Mass Index 24.0 Const General: cooperative, healthy appearing, comfortable, no acute distress and well developed Orientation/consciousness: patient oriented x3 Limitations: no limitations Eyes General: appearance normal, both eyes and all related structures Resp Effort & Inspection: normal respiratory effort and able to speak in complete sentences Neuro General: patient oriented x3 Results AMB Urinalysis, Automated UA Leukoctes 0 Valerio/uL Last Edit by Josafat Caba CMA on 05/11/24 08:24 UA Nitrite Negative Last Edit by Josafat Caba CMA on 05/11/24 08:24 UA Urobilinogen 0.2 mg/dL Last Edit by Josafat Caba CMA on 05/11/24 08 :24 UA Protein 15 mg/dL Last Edit by Josafat Caba CMA on 05/11/24 08:24 UA pH 6.0 Last Edit by Josafat Caba CMA on 05/11/24 08:24 UA Blood 0 Gualberto/uL Last Edit by Josafat Caba CMA on 05/11/24 08:24 UA Specific [place] 1.030 Last Edit by Josafat Caba CMA on 05/11/24 08:24 UA Ketone Negative Last Edit by Josafat Caba CMA on 05/11/24 08:24 UA Bilirubin 0 mg/dL Last Edit by Josafat Caba CMA on 05/11/24 08:24 UA Glucose 0 mg/dL Last Edit by Josafat Caba CMA on 05/11/24 08:24 Results Reviewed Results Reviewed: UA in office is negative Assessment & Plan Assessment & Plan (1) Dysuria: Code(s): R30.0 - Dysuria Plan: We will treat based on symptoms, last time was prescribed Bactrim for 5 days. We did discuss her elevated blood pressure, she states it is due to anxiety because of her not feeling well today. Plan See above Orders: Orders AMB Urinalysis Automated Today Z13.9 - Encounter for screening, unspecified Medications: New sulfamethoxazole-trimethoprim 800-160 mg (Bactrim DS) 1 tab PO Q12H 10 tabs 0RF Coding Level of Care Code Est Pt Level 3 (79498) Diagnoses Dysuria R30.0
[2024-05-11 08:05] VITALS: BP 162/88; PULSE 77; TEMP 36.8; O2SAT 100; BMI 24.0
== END 2024-05-11 08:50 | disposition home or self-care (01) ==
PROVIDERS: PCP Internal Medicine; Visit Provider Physician Assistant
DX: R30.0 Dysuria (principal)
CPT/HCPCS: 81003; 99213

== ENCOUNTER 2024-05-17 14:37 | Outpatient (AMB) | payer OTHER, SELFPAY ==
[2024-05-17 15:04] VITALS: BP 116/62; BMI 24.1
--- NOTE | 2024-05-17 15:04 | A.OFFVIS_ITS ---
Vital Signs 05/17/24 15:04 Height 5 ft 7 in Weight 154 lb BMI 24.1 BP 116/62 Intake Visit Reasons: ? vaginal infection Graining Machine Operator Required: No Graining Machine Operator Services: Graining Machine Operator Present Information Interpreted: clinical only Osteology Teacher: Osteology Teacher Present Allergies tiagabine [Gabitril] Allergy (Unknown, Verified 05/17/24 15:16) blindness Medication List - Last Reconciled 05/17/24 by Kylah Hampton CNM buprenorphine-naloxone 8-2 mg 17 mg sublingual DAILY cetirizine 10 mg PO DAILY ibuprofen 800 mg PO Q8H PRN ondansetron 4 mg PO Q8H PRN Is last menstrual period known: Yes Last menstrual period: 04/25/24 HPI HPI ? vaginal infection: Details: There is a problem visit today she said she went to the urgent care in [place] with symptoms of UTI and says that they thought her symptoms were not exactly a UTI was more vaginal burning but they treated her anyway and she was treated with 5 days of Bactrim. She says 70% of her symptoms are better but she still had some vaginal burning and in the last few days it has been sore vaginally as well. She does not have any itching she has not at all concerned about STDs and invited her partner into the visit and denied any other concern about STIs. S he says she gets regular periods she normally sees Florence Diop for wireless operator care. [facility] Medical History Bilateral hand pain Substance abuse Annual physical exam Weight loss Elevated LFTs Enlarged thyroid History of anxiety Hx of abnormal cervical Pap smear Surgical History History of cryosurgery Family History Paternal Grandmother Ovarian cancer Other Mental health disorder Substance use disorder Social History Household Members: Spouse Household Members Other:: daughter Housing: Apartment Alcohol intake: former Patient Tobacco Use Status: Never used Tobacco Current occupational status: employed Current occupation: [employer] Sexual orientation: Straight/Heterosexual Gender identity: Female Cognitive needs: No Hearing needs: No Vision needs: No Female Reproductive History Menstrual Age of Menarche: 12 Duration of menses: 3-5 days Date of last menstrual period: 04/25/24 control method: none Total pregnancies: 2 Full term: 2 Date of last pap smear: 11/27/22 (negative) History of abnormal pap smear: Yes (2000,abn. pap) Physical Exam Vital Signs: Last Vital Signs BP 116/62 05/17/24 15:04 BMI result Body Mass Index 24.1 Other: External labia slightly dry consistent with rola menopausal changes. There is some slightly whitish coloration to labia minora that could possibly be consistent with lichen sclerosis no architectural changes that I could detect.. Because patient said the 1 area had been sore I carefully evaluated to see if there was any area that had a sore or open lesion and there was none. Bimanual exam essentially nontender cervix firm uterus small firm anteverted mobile nontender adnexa nontender good muscle tone. No area of exquisite tenderness elicited. External Female Exam: normal external appearance Speculum Exam - Vagina: normal appearance of the vagina and normal vaginal discharge Speculum Exam - Cervix: normal appearance of the cervix Bimanual exam- vagina & uterus: normal bimanual exam, uterine size normal, consistency normal, uterine mobility normal, uterine shape normal and non-tender Bimanual Exam- Adnexa, other: normal adnexae, no masses and No adnexal tenderness Results Reviewed Results Reviewed: Name: Tosha Waite Age/Sex: 42/F Attending: Lacie Santos MD : 1980 Submitted by: Lacie Santos MD Copies to: MR #: [id number] Status: DEP REF Collected: 11/27/22 Location: [facility] Received: 11/27/22 Interpretation Satisfactory for evaluation. No endocervical cells seen. Negative for intraepithelial lesion or malignancy. HPV mRNA E6/E7: NOT DETECTED This assay detects E6/E7 viral messenger RNA (mRNA) from 14 high-risk HPV types (16, 18, 31, 33, 35, 39, 45, 51, 52, 56, 58, 59, 66, 68) HPV testing performed by [facility], [place], [place]. See reference laboratory portion of the EMR for entire report. Clinical Information LMP: N/A Previous PAP test: N/A Material Received ThinPrep-Cervical Electronically Signed By: Munira Rubio 12/09/22 1257 The Pap Test is a screening procedure with the inherent possibility of both false negative and false positive results. Results should be interpreted in the context of historic and current clinical findings. Reliability of the Pap Test is enhanced by performing the test on a regular repetitive basis. Patient: Tosha Waite Age/Sex: 42/F MR#: [id number] Page 1 of 1 Assessment & Plan Assessment & Plan (1) Vaginal burning: Code(s): N94.9 - Unspecified condition associated with female genital organs and menstrual cycle Category: Medical (2) UTI (urinary tract infection): Comment: Has just finished course of Bactrim for UTI. Code(s): N39.0 - Urinary tract infection, site not specified Category: Medical Plan Discussed patient's symptoms in some detail. The discharge appeared within normal limits the vagina does appear slightly dry which could be possibly consistent with yeast but difficult to say patient does find symptoms uncomfortable enough that working 12 hour shifts at night is challenging and she needs to go to work discussed treating symptomatically as yeast with Monistat cream for relief pending the results there was no lesion that was suspicious for herpes or any other sore. Discussed that the whitish discolorations labia minora might be indicative of another autoimmune condition for which a different treatment is sometimes indicated. Discussed that she may want to make an appointment just to evaluate that she says she is noticed those changes over the last year so. Since this is the 1st time arms in this patient it is difficult to say whether not these changes good represent this (lichen sclerosis). A clean-catch urine also had been collected at the beginning of the visit we will send that as well prescriptions for Monistat cream for symptomatic relief sent to her [facility] 7 day course. Orders: Orders CT NG by PCR Today N94.9 - Unspecified condition associated with female genital organs and menstrual cycle, Z11.3 - Encounter for screening for infections with a predominantly sexual mode of transmission Urine Culture Today N94.9 - Unspecified condition associated with female genital organs and menstrual cycle, R35.0 - Frequency of micturition Bacterial Vaginosis Panel Today N89.8 - Other specified noninflammatory disorders of vagina, N94.9 - Unspecified condition associated with female genital organs and menstrual cycle Medications: New miconazole nitrate 2% (Miconazole-7) 1 appful vaginal BEDTIME 7 days 45 grams 3RF Coding Level of Care Code Est Pt Level 3 (25089) Diagnoses Vaginal burning N94.9 UTI (urinary tract infection) N39.0
== END 2024-05-17 16:43 | disposition home or self-care (01) ==
LOC: HO.HWSM 14:37
PROVIDERS: PCP Internal Medicine; Visit Provider Advanced Practice Midwife
DX: N94.9 Unspecified condition associated with female genital organs and menstrual cycle (principal); N39.0 Urinary tract infection, site not specified
CPT/HCPCS: 99213

== ENCOUNTER 2024-05-17 14:37 | Outpatient (REF) | payer OTHER, SELFPAY ==
[2024-05-18 13:41] LABS: Bacterial Vaginosis PCR NEGATIVE (Negative); Candida Group PCR NOT DETECTED (Not Detect); Candida glab krusei PCR NOT DETECTED (Not Detect); Trichomonas vaginalis PCR NOT DETECTED (Not Detect)
[2024-05-18 13:59] LABS: CT PCR NOT DETECTED (Not Detect.); NG PCR NOT DETECTED (Not Detect.)
== END 2024-05-17 14:38 | disposition home or self-care (01) ==
LOC: HO.LAB 14:37
PROVIDERS: PCP Internal Medicine; Visit Provider Advanced Practice Midwife
DX: Z11.3 Encounter for screening for infections with a predominantly sexual mode of transmission (principal); R35.0 Frequency of micturition; N89.8 Other specified noninflammatory disorders of vagina; N94.9 Unspecified condition associated with female genital organs and menstrual cycle
CPT/HCPCS: 0352U; 0353U; 87086

== ENCOUNTER 2024-05-17 16:17 | Outpatient (REF) | payer OTHER, SELFPAY | END 2024-05-17 16:18 | disposition home or self-care (01) | LOC: HO.LNP 16:17 | PROVIDERS: Visit Provider Advanced Practice Midwife | DX: Z13.89 Encounter for screening for other disorder (principal) ==

== ENCOUNTER 2024-06-23 12:12 | Outpatient (AMB) | payer OTHER, SELFPAY ==
[2024-06-23 12:18] VITALS: BP 142/80; PULSE 77; TEMP 36.9; O2SAT 99
--- NOTE | 2024-06-23 12:18 | MHC.OFFWIV ---
Intake Vital Signs 06/23/24 12:18 Height 5 ft 7 in BP 142/80 H Blood Pressure Location Rt brachial Position Sitting Pulse 77 Pulse Source Pulse Oximeter Temp 98.4 F Temp Source Oral Pulse Oximetry (%) 99 Oxygen Delivery Method Room Air Intake Visit Reasons: EP fever Intake Note: pt is here for c/o fever Patient Tobacco Use Status: Never used Tobacco Allergies tiagabine [Gabitril] Allergy (Unknown, Verified 06/23/24 12:18) blindness Do you need a note to return to daycare/school/sports/work: Yes HPI HPI Comments History of Present Illness Details This is a 44-year-old female with past medical history of opiate use disorder currently maintained on Suboxone and allergic rhinitis presenting for evaluation of subjective fevers and fatigue she has had since Friday. Patient states that she woke up last night with night sweats. Patient has been taking Tylenol [id number]-syj-lvorimi without relief of her symptoms. Patient has never taken her temperature at home. Patient states her has had similar symptoms. Patient reports occasional rhinorrhea but denies having any headache, visual changes, neck pain, cough, shortness of breath, abdominal pain, dysuria or diarrhea. [facility] Medical History Bilateral hand pain Substance abuse Annual physical exam Weight loss Elevated LFTs Enlarged thyroid History of anxiety Hx of abnormal cervical Pap smear Surgical History History of cryosurgery Family History Paternal Grandmother Ovarian cancer Other Mental health disorder Substance use disorder Social History Household Members: Spouse Household Members Other:: daughter Housing: Apartment Alcohol intake: former Patient Tobacco Use Status: Never used Tobacco Current occupational status: employed Current occupation: [employer] Sexual orientation: Straight/Heterosexual Gender identity: Female Cognitive needs: No Hearing needs: No Vision needs: No Female Reproductive History Menstrual Age of Menarche: 12 Review of Systems Const All systems reviewed & are unremarkable except as noted in HPI and below Denies chills, Reports fatigue, Reports fever(s) (Subjective), Reports malaise and Denies weakness Eyes Reports no additional complaints ENT Reports as per HPI, Denies otalgia, Reports nasal discharge, Denies post nasal drip, Denies sore throat and Denies throat swelling Card Reports no additional complaints and Denies dyspnea Resp Reports no additional complaints, Denies cough and Denies dyspnea GI Reports no additional complaints Reports no additional complaints and Denies dysuria Musc Reports no additional complaints Skin/Breast Reports system reviewed and no additional complaints, except as documented Neuro Reports no additional complaints and Denies weakness Psych Reports no additional complaints Endo Reports fatigue Aller/Immun Reports no additional complaints and Denies throat swelling Physical Exam Vital Signs: Last Vital Signs Temp 98.4 F 06/23/24 12:18 Pulse 77 06/23/24 12:18 BP 142/80 H 06/23/24 12:18 Pulse Ox 99 06/23/24 12:18 Oxygen Delivery Method Room Air 06/23/24 12:18 Patient is afebrile. Const General: cooperative, healthy appearing, comfortable, no acute distress, well developed, alert (anxious affect), awake and anxious Nutritional Appearance: average body habitus Orientation/consciousness: patient oriented x3 Limitations: no limitations HEENT Head: Yes normal to inspection Ears: hearing grossly normal bilaterally, external ears normal, TM's normal bilaterally and EAC's normal General nose exam: Normal external nose present and Normal nares present Face and sinus: Yes normal facial exam and Yes sinuses nontender Mouth: Normal oral and palatal mucosa present and moist mucous membranes Throat: Yes posterior oropharynx normal and No postnasal drainage Eyes General: appearance normal, both eyes and all related structures Neck Lymphatic: no lymphadenopathy noted Resp Effort & Inspection: normal respiratory effort and able to speak in complete sentences Auscultation: clear to auscultation bilaterally Cardio Rate: regular rate Rhythm: regular rhythm GI Palpation (GI): Soft to palpation and nontender Auscultation: normal bowel sounds General: Yes Bimanual renal exam normal bilaterally and Yes bladder normal to palpation Bimanual exam- vagina & uterus: bladder normal to palpation Skin General skin exam: no rashes or lesions noted Neuro General: patient oriented x3 Psych Appearance: grossly normal Mental Status: mental status grossly normal Affect: Anxious affect present Insight: Good insight present (Psych) Judgement: Good judgement present (Psych) Assessment & Plan Assessment & Plan (1) Upper respiratory infection: Comment: Patient is afebrile and not hypoxic. Patient is requesting a work.note for two days. Code(s): J06.9 - Acute upper respiratory infection, unspecified Qualifiers: URI type: unspecified viral URI Qualified Code(s): J06.9 - Acute upper respiratory infection, unspecified Plan: Tylenol and/or ibuprofen as needed for any fevers that recur. Stay very well hydrated with water upon returning home and follow-up with PCP in 5-7 days if symptoms persist. Coding Level of Care Code Est Pt Level 3 (58902) Diagnoses Viral upper respiratory tract infection J06.9 URI type: unspecified viral URI Time Spent (min) 20
== END 2024-06-23 12:37 | disposition home or self-care (01) ==
PROVIDERS: PCP Internal Medicine; Visit Provider Physician Assistant
DX: J06.9 Acute upper respiratory infection, unspecified (principal)
CPT/HCPCS: 99213

== ENCOUNTER 2024-10-25 08:23 | Outpatient (AMB) | payer OTHER, SELFPAY ==
--- NOTE | 2024-10-25 09:05 | AM.OFFWIN_ITS ---
Intake Vital Signs 10/25/24 09:11 Height 5 ft 7 in Weight 150 lb BMI 23.5 BP 140/90 H Blood Pressure Location Lt brachial Position Sitting Pulse 82 Pulse Source Pulse Oximeter Temp 98.2 F Temp Source Oral Pulse Oximetry (%) 98 Oxygen Delivery Method Room Air Intake Visit Reasons: EP-uti Intake Note: Patient here for pressure, frequent urination that started yesterday. Patient Tobacco Use Status: Never used Tobacco Allergies tiagabine [Gabitril] Allergy (Unknown, Verified 10/25/24 09:12) blindness Do you need a note to return to daycare/school/sports/work: No HPI EP-uti HPI Details This note is constructed using voice recognition software. While every effort has been made to ensure accuracy, archery equipment repairer errors may have been included. The patient is a 44 year old female who presents to the clinic today with concerns for urinary tract infection. She reports symptom onset yesterday before work including urgency, frequency, and pressure. Overnight she developed some slight burning on urination. She took an azo urinary tract health medication, which is different from the peay-usx-hxnuher Pyridium, which helped the symptoms some. She denies fever, chills, back pain. She reports she has had similar symptoms in the past, where she was not treated for urinary tract infection, however symptoms worsened over the remainder of the couple of days after that, and then she ended up on antibiotics and she is hopeful that she can have antibiotics prescribed today. She is sexually active with her only, no vaginal discharge. [facility] Medical History Bilateral hand pain Substance abuse Annual physical exam Weight loss Elevated LFTs Enlarged thyroid History of anxiety Hx of abnormal cervical Pap smear Surgical History History of cryosurgery Family History Paternal Grandmother Ovarian cancer Other Mental health disorder Substance use disorder Social History Household Members: Spouse Household Members Other:: daughter Housing: Apartment Alcohol intake: former Patient Tobacco Use Status: Never used Tobacco Current occupational status: employed Current occupation: [employer] Sexual orientation: Straight/Heterosexual Gender identity: Female Cognitive needs: No Hearing needs: No Vision needs: No Female Reproductive History Menstrual Age of Menarche: 12 Review of Systems Const All systems reviewed & are unremarkable except as noted in HPI and below Physical Exam Const General: cooperative, healthy appearing, comfortable, no acute distress and alert Orientation/consciousness: patient oriented x3 Limitations: no limitations Resp Effort & Inspection: normal respiratory effort and able to speak in complete sentences Other: Deferred General: Yes no CVA tenderness Back/Spine/Pelvis Back: no CVA tenderness Skin General skin exam: no rashes or lesions noted, elasticity normal and turgor normal Neuro General: patient oriented x3 Psych Appearance: grossly normal Mental Status: mental status grossly normal Speech and movement: Normal speech and movement present Affect: normal affect Assessment & Plan Assessment & Plan (1) Dysuria: Code(s): R30.0 - Dysuria Plan: Supportive measures encouraged and reviewed. Antibiotic sent to requested pharmacy based on symptoms despite negative in office urine dip, advised patient to take antibiotics until completed and not to stop if feeling better, unless the patient has side effects. Advised patient to follow up with primary care provider with worsening or failure to resolve. Plan See above for full details and plan. Medications: New nitrofurantoin monohyd/m-cryst 100 mg must administer with a meal/food 100 mg PO Q12H 3 days 6 caps 0RF Coding Level of Care Code Est Pt Level 3 (20982) Diagnoses Dysuria R30.0
[2024-10-25 09:11] VITALS: BP 140/90; PULSE 82; TEMP 36.8; O2SAT 98; BMI 23.5
== END 2024-10-25 09:25 | disposition home or self-care (01) ==
PROVIDERS: PCP Internal Medicine; Visit Provider Registered Nurse
DX: R30.0 Dysuria (principal); Z13.9 Encounter for screening, unspecified

== ENCOUNTER → 2024-10-25 08:23 | Outpatient (BNVA) | payer OTHER, SELFPAY | PROVIDERS: PCP Internal Medicine; Visit Provider Registered Nurse | DX: R30.0 Dysuria (principal) | CPT/HCPCS: 81003 ==

== ENCOUNTER → 2024-12-23 09:50 | Outpatient (BNVA) | payer OTHER, SELFPAY | PROVIDERS: PCP Internal Medicine | DX: M25.512 Pain in left shoulder (principal) | CPT/HCPCS: 99212 ==

== ENCOUNTER 2025-11-07 10:33 | Outpatient (AMB) | payer OTHER, SELFPAY ==
--- NOTE | 2025-11-07 10:35 | MHC.PC.OV ---
Vital Signs 11/07/25 10:36 Height 5 ft 7 in Weight 153 lb BMI 24.0 BP 120/70 Blood Pressure Location Lt brachial Position Sitting Respiration 18 Pulse 76 Pulse Source Pulse Oximeter Temp 98.4 F Temp Source Oral Pulse Oximetry (%) 96 Oxygen Delivery Method Room Air Intake Visit Reasons: Pain in breast Intake Note: Pt is here today for a sick visit. Pt c/o pain in her R breast and noticed a little discharge. Allergies tiagabine (Gabitril) Allergy (Unknown, Verified 11/07/25 10:41) blindness Tobacco use date assessed: 11/07/25 Dental Screening Dental Screen Date: 11/07/25 Did you have a dental visit in the last 12 months?: Yes Did you have a dental problem in the last 6 months where you did not have access to dental care?: No Was dental information given to patient?: Patient has dentist HPI Pain in breast HPI Details Patient presents complaining of bilateral breast pain and tenderness on and off for the last few months. Patient has not been able to palpate any breast lumps but noticed small amount of clear discharge from nipples, wet stain on the bra. [facility] Medical History Bilateral hand pain Substance abuse Annual physical exam Weight loss Elevated LFTs Enlarged thyroid History of anxiety Hx of abnormal cervical Pap smear Surgical History History of cryosurgery Family History Paternal Grandmother Ovarian cancer Other Mental health disorder Substance use disorder Social History Household Members: Spouse Household Members Other:: daughter Housing: Apartment Alcohol intake: former Patient Tobacco Use Status: Never used Tobacco e-Cigarette/Vaping Use: Never Used service: No Current occupational status: employed Current occupation: [employer] Sexual orientation: Straight/Heterosexual Gender identity: Female Cognitive needs: No Hearing needs: No Vision needs: No Female Reproductive History Menstrual Age of Menarche: 12 Questionnaire PHQ-9 Over the last 2 weeks, how often have you been bothered by any of the following problems? 1. Little interest or pleasure in doing things: not at all 2. Feeling down, depressed, or hopeless: not at all 3. Trouble falling or staying asleep, or sleeping too much: not at all 4. Feeling tired or having little energy: not at all 5. Poor appetite or overeating: not at all 6. Feeling bad about yourself - or that you are a failure or have let yourself or your family down: not at all 7. Trouble concentrating on things, such as reading the newspaper or watching television: not at all 8. Moving or speaking so slowly that other people could have noticed. Or the opposite - being so fidgety or restless that you have been moving around a lot more than usual: not at all 9. Thoughts that you would be better off or of hurting yourself in some way: not at all Total score: 0 Depression Screening Interpretation: Negative Depression Screening Done: Yes 13535 - PHQ-9 Billing: Yes Source: Developed by Drs. Kai Lemos, Reba Olson, Jaden Arreola and colleagues, with an educational vitaliy from [employer]. Thrive Questionnaire Date Thrive assessed: 11/07/25 I am a: Patient What is your living situation today?: I have a steady place to live Within the past 12 months, did the food you bought not last and you didn't have the money to get more?: Never true Within the past 12 months, did you worry whether your food would run out before you got money to buy more?: Never true Do you have trouble paying for medicines?: No Do you have trouble getting transportation to medical appointments?: No Do you have trouble paying your heating and electricity bill?: No Do you have trouble taking care of your child, family member or friend?: No Do you have trouble with day-to-day activities such as bathing, preparing meals, shopping, managing finances, etc.?: No Are you currently unemployed and looking for a job?: No Are you interested in more education?: No Please select the resources that you would like help with: None Currently or been in a relationship where the following occur: I choose not to answer THRIVE Score: 0 AUDIT C Alcohol Use Questionnaire (AUDIT-C) 1. How often do you have a drink containing alcohol?: Never 3. How often do you have six or more drinks on one occasion?: Never Total Score: 0 ALIX-7 AMB Questionnaire ALIX-7 Date ALIX - 7 assessed: 11/07/25 Feeling nervous, anxious, or on edge: 2 = More than half the days Not being able to stop or control worryin = Not at all Worrying too much about different things: 0 = Not at all Trouble relaxin = Not at all Being so restless that it is hard to sit still: 0 = Not at all Becoming easily annoyed or irritable: 0 = Not at all Feeling afraid as if something awful might happen: 0 = Not at all Total ALIX-7 score (0-4 normal; 5-9 mild; 10-14 moderate; 15-21 severe): 2 Source: Developed by Drs. Kai Lemos, Reba Olson, Jaden Arreola and colleagues, with an educational vitaliy from [employer]. ALIX-7 Assessment Billing ALIX-7 Assessment Tool: ALIX-7 Assessment 51510 Review of Systems Const All systems reviewed & are unremarkable except as noted in HPI and below Card Reports no additional complaints Resp Reports no additional complaints GI Reports no additional complaints Reports no additional complaints Physical exam (Primary Care) Vital Signs: Last Vital Signs Temp 98.4 F 11/07/25 10:36 Pulse 76 11/07/25 10:36 Resp 18 11/07/25 10:36 BP 120/70 11/07/25 10:36 Pulse Ox 96 11/07/25 10:36 Oxygen Delivery Method Room Air 11/07/25 10:36 BMI result Body Mass Index 24.0 Tobacco/Smoking Status: Tobacco use Status Tobacco use date assessed 11/07/25 11/07/25 10:43 Patient Tobacco Use Status Never used Tobacco 11/07/25 10:43 e-Cigarette/Vaping Use Never Used 11/07/25 10:43 PHQ-9: PHQ-9 Score PHQ-9: Total score 0 11/07/25 10:43 Depression Screening Interpretation: Negative Thrive Assessment: Date of Thrive Assessment Date Thrive assessed 11/07/25 11/07/25 10:43 Currently or been in a relationship where the following occur: I choose not to answer Const General: no acute distress HENMT Head: Yes normal to inspection Throat: Yes posterior oropharynx normal Chest Other: No nipple discharge bilaterally Breast/axilla inspection: normal inspection of the breasts and normal inspection of the axillae Breast/axilla palpation: normal palpation of the breasts and normal palpation of the axillae Resp Effort & Inspection: normal respiratory effort Auscultation: clear to auscultation bilaterally Cardio Rhythm: regular rhythm Heart sounds: S1 normal heart sound present and S2 normal heart sound present Coding Level of Care Code Est Pt Level 3 (02873) Diagnoses Breast pain, left N64.4 Breast pain, right N64.4 Additional Codes ALIX-7 Assessment Billing - ALIX-7 Assessment Tool: ALIX-7 Assessment 02262 ([id number]) PHQ-9 - 35206 - PHQ-9 Billing: Yes ([id number]) Assessment & Plan Assessment & Plan (1) Breast pain, left: Code(s): N64.4 - Mastodynia Category: Medical Plan: Obtain diagnostic mammogram and us (2) Breast pain, right: Code(s): N64.4 - Mastodynia Category: Medical Plan: Obtain diagnostic mammogram and ultrasound, check prolactin level Orders: Orders Lipid Panel Today N63.10 - Unspecified lump in the right breast, unspecified quadrant, N64.4 - Mastodynia UA w Microscopic Today N63.10 - Unspecified lump in the right breast, unspecified quadrant, N64.4 - Mastodynia Vitamin D 25-OH Total Today N63.10 - Unspecified lump in the right breast, unspecified quadrant, N64.4 - Mastodynia MM tomosynthesis diagnostic BI Today N64.4 - Mastodynia US breast LT limited Today N64.4 - Mastodynia Comprehensive [place]. Panel Fast Today N63.10 - Unspecified lump in the right breast, unspecified quadrant, N64.4 - Mastodynia Complete Blood Count Auto Diff Today N63.10 - Unspecified lump in the right breast, unspecified quadrant, N64.4 - Mastodynia Prolactin Today N63.10 - Unspecified lump in the right breast, unspecified quadrant, N64.4 - Mastodynia TSH reflex Free T4 Today N63.10 - Unspecified lump in the right breast, unspecified quadrant, N64.4 - Mastodynia US breast RT limited Today N64.4 - Mastodynia
[2025-11-07 10:36] VITALS: BP 120/70; PULSE 76; RESP 18; TEMP 36.9; O2SAT 96; BMI 24.0
== END 2025-11-07 11:37 | disposition home or self-care (01) ==
LOC: HO.HMCC 10:34
PROVIDERS: PCP Internal Medicine; Visit Provider Internal Medicine
DX: N64.4 Mastodynia (principal)

== ENCOUNTER → 2025-11-07 10:33 | Outpatient (BNVA) | payer OTHER, SELFPAY | PROVIDERS: PCP Internal Medicine; Visit Provider Internal Medicine | DX: N64.4 Mastodynia (principal) | CPT/HCPCS: 96127 ==